=== PATIENT | male | born 1950 | race Caucasian/White ===

== ENCOUNTER 2017-04-15 05:30 | Day surgery (SDC) | payer BC, OTHER ==
[~2017-04-15] VITALS: Ht 177.8 cm; Wt 112.9 kg
--- NOTE | ~2017-04-15 | O ---
[facility] [address] [place] [address] OPERATIVE REPORT Name: ADDI HIGGINS Room #: DEP [facility] M.R.#: [id number] Admission: 04/15/17 Attend Phys: Jerzy Rea MD Discharge: 04/15/17 Date of : 54 Report #: [id number] THIS REPORT FOR: //name// CC: Brandon Alfaro DATE OF SERVICE: 04/15/[address] Jerzy Rea and Dr. Brandon Zhao. PREOPERATIVE DIAGNOSIS: Incarcerated ventral umbilical hernia. POSTOPERATIVE DIAGNOSIS: Incarcerated ventral umbilical hernia. PROCEDURE: Repair of an incarcerated ventral umbilical hernia. SURGEON: Jerzy Rea M.D. ANESTHESIA: Local IV sedation. DESCRIPTION OF PROCEDURE: The patient was brought to the operating room and placed on the operative table in the supine position. Sequential compression devices were in place for DVT prophylaxis. There was no indication for preoperative antibiotics. The patient underwent the IV sedation. The abdomen was then prepped and draped in a sterile fashion. Skin and subcutaneous tissue around the umbilicus was infiltrated with 0.5% Marcaine, 1% Xylocaine in a 1:1 mixture. A transverse supraumbilical skin incision was then performed using #15 scalpel blade. Hemostasis was obtained using electrocautery. Dissection was carried down through the subcutaneous tissue of this incarcerated hernia with some incarcerated preperitoneal fat. This was dissected free and then reduced back through the fascia into the preperitoneal space. The fascial defect was then closed using interrupted [id number] #1 Prolene sutures. The deep and superficial subcutaneous tissue was then reapproximated using simple interrupted 2-0 chromic sutures and the skin then closed with a running 4-0 subcuticular Vicryl stitch. The wound was then dressed with Dermabond, Telfa, 4 x 4 gauze, sponge and tape. The patient was then taken to the recovery room awake, alert and in good condition. Estimated blood loss was less than 5 mL, and the patient tolerated the procedure well. All sponge, lap and instrument counts correct times 2. <ELECTRONICALLY SIGNED> By: Jerzy Rea MD 04/16/17 [id number] Jerzy Rea MD /nt
[~2017-04-15 05:30] MED LIST: LOPRESSOR25 PO; VERAPAMIL ER100 MG PO
[2017-04-15 13:00] VITALS: BP 147/82
[2017-04-15] MEDS ORDERED: NORCO 5-325 TA1 EACH PO (15:01)
[2017-04-15 16:08] VITALS: BP 147/82
== END 2017-04-15 17:28 | disposition home or self-care (01) ==
LOC: OR 05:30 → TBA 05:30 → OR 11:13
DX: K42.0 Umbilical hernia with obstruction, without gangrene (principal); I10 Essential (primary) hypertension; Z85.828 Personal history of other malignant neoplasm of skin; Z98.890 Other specified postprocedural states; Z87.891 Personal history of nicotine dependence; Z79.899 Other long term (current) drug therapy; Z79.891 Long term (current) use of opiate analgesic
CPT/HCPCS: 50010; 50101; 50386; 50417; 54118; 56524; 56525; 56526; 62110; 62850; 70005